=== PATIENT | male | born 1950 | race Caucasian/White ===

== ENCOUNTER 2018-03-22 10:16 | Inpatient (IN) ==
--- NOTE | 2018-03-22 10:43 | Anesthesia Evaluation PreOp ---
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: Other (anxiety, depression) Other Medical History: Renal (CKD), GERD, Other (20 cups of coffee / day) Anesthesia History: No Prior Anesthetic Complications, Past Anesthesia (previous easy airway appy, colonscopy) Alcohol Use: occasionally Drug use: marijuana Medications and Allergies Albuterol Neb [Proventil Neb] 2.5 mg IH TID 01/30/18 [History] Albuterol Sulfate [Proair Hfa] 2 puff IH Q4H PRN 01/30/18 [History] Amlodipine Besylate 5 mg PO DAILY 01/30/18 [History] BuPROPion XL (24 HR) [Wellbutrin XL] 150 mg PO DAILY 01/30/18 [History] Cholecalciferol (Vitamin D3) [Vitamin D3] 5,000 unit PO DAILY 01/30/18 [History] HYDROcodone/Acet 7.5/325 mg [[place] 7.5-325 mg] 1 tab PO Q12H PRN 01/30/18 [History] Meloxicam 15 mg PO DAILY 01/30/18 [History] Omeprazole 20 mg PO DAILY 01/30/18 [History] Tiotropium [Spiriva] 18 mcg IH DAILY 01/30/18 [History] Allergy/AdvReac Type Severity Reaction Status Date / Time No Known Allergies Allergy Verified 03/05/18 14:11 - Meds/Allergy Pre-op Review Medications Reviewed: Yes Allergies Reviewed: Yes Beta Blockers on Current Med List: No Anesthesia Results - Labs Laboratory Tests 02/22/18 03/05/18 03/19/18 08:12 15:57 10:39 WBC Hgb Hct Plt Count ABG pH 7.42 ABG pCO2 42 ABG pO2 68 L ABG HCO3 27 ABG Total CO2 28 H Sodium 139 Potassium 3.8 Chloride 105 Carbon Dioxide 29 BUN 19 POC Creatinine 1.30 Est GFR (Non-Af Amer) 58 L 03/19/18 10:39 WBC 8.8 Hgb 15.0 Hct 46.8 Plt Count 221 ABG pH ABG pCO2 ABG pO2 ABG HCO3 ABG Total CO2 Sodium Potassium Chloride Carbon Dioxide BUN POC Creatinine Est GFR (Non-Af Amer) - Imaging EKG: report reviewed Additional studies: 02/2018 INTERPRETATION: Quality: Acceptable for interpretation Spirometry shows moderate airway obstructive pattern No response to inhaled bronchodilators is seen Lung Volumes are normal. DLCO: Severe impairment in gas exchange Flow Volume Loop: Obstructive 01/14/[address] IMPRESSION: There has been interval development of a 4.0 x 5.0 x 4.0 cm spiculated masslike consolidation in the right perihilar region centered mainly in the middle lobe with encroachment into the adjacent lobes and also blending into the anterior hilum along with interval mild increase in mediastinal adenopathy. Findings would be considered neoplastic until proven otherwise. Subpleural nodular density in the left upper lobe reported on previous exam has almost completely resolved. Anesthesia Exam Vital Signs/O2 Sat/Glucose, Most Recent Temp Pulse Resp BP Pulse Ox 97.9 F 76 18 128/80 94 03/22/18 11:30 03/22/18 11:30 03/22/18 11:30 03/22/18 11:30 03/22/18 11:30 Weight: 93 kg NPO (# of Hours): > 8 hr - HEENT Pupil (Motor): Pupils equal, EOMI Mallampati: III Teeth: Edentulous, Poor dentition (1 cracked tooth) Oral Opening: Greater than 3 - ASSEMBLER INSTALLER GENERAL LOC: Oriented ASSEMBLER INSTALLER GENERAL Motor: Normal RUE, Normal LUE, Normal RLE, Normal LLE, Normal Face ASSEMBLER INSTALLER GENERAL Sensory: Normal: RUE, LUE, RLE, LLE, Face - Cardiac Rhythm: Regular Murmur: None - Pulmonary Breath Sounds: bilateral Clear Respiratory Effort: Symmetrical Anesthesia Assess/Plan ASA Score: 3 (HTN, COPD, lung caner, high risk TYRONE) Level of consciousness: Cooperative, Oriented Anesthetic Plan: General Monitoring Plan: Standard Monitors Recovery Plan: PACU
[2018-03-22] MEDS ORDERED: Dexamethasone 4 MG/ML VIAL ONE (10:50)
[2018-03-22] MEDS ORDERED: *HR* Rocuronium Bromide 50 MG/5 ML VIAL ONE (10:50)
[2018-03-22] MEDS ORDERED: Ondansetron 4 MG/2 ML VIAL ONE (10:50)
[2018-03-22] MEDS ORDERED: Lidocaine -MPF 2% 2 ML VIAL ONE (10:50)
[2018-03-22] MEDS ORDERED: *HR* Midazolam HCl 2 MG/2 ML VIAL ONE (10:51)
[2018-03-22] MEDS ORDERED: *HR* Propofol 200 MG/20 ML VIAL IVP ONE (10:51)
[2018-03-22] MEDS ORDERED: *HR* FentaNYL (PF) 100 MCG/2 ML VIAL ONE ×2 (10:51→14:34)
[2018-03-22] MEDS ORDERED: Ketorolac 30 MG/ML VIAL ONE (10:54)
[2018-03-22] MEDS ORDERED: Albuterol 2.5 MG/3 ML NEBULIZER IH ONE (11:27)
[2018-03-22] MEDS ORDERED: CeFAZolin Syr 2,000MG/20 ML 2,000 MG/20 ML SYRINGE IVPB ONE (11:27)
[2018-03-22] MEDS ORDERED: Ringers Solution, Lactated 1,000 ML IVC SCH (11:30)
[2018-03-22] MEDS ORDERED: Ketorolac 30 MG/ML VIAL IVP ONE (11:45)
[2018-03-22] MEDS ORDERED: Famotidine 20 MG/2 ML VIAL IVP ONE (11:45)
[2018-03-22] MEDS ORDERED: *HR* OxyCODONE Immed Rel 5 MG TABLET PO PRN (11:45)
[2018-03-22] MEDS ORDERED: Acetaminophen IV 1,000 MG/100 ML INFUS..BTL IVPB ONE (11:45)
[2018-03-22] MEDS ORDERED: Gabapentin 300 MG CAPSULE PO ONE (11:45)
[2018-03-22] MEDS ORDERED: *HR* Promethazine 25 MG/ML VIAL IVP PRN (11:45)
[2018-03-22] MEDS ORDERED: Ondansetron 4 MG/2 ML VIAL IVP ONE (11:45)
[2018-03-22] MEDS ORDERED: *HR* HYDROmorphone (PF) 1 MG/ML SYRINGE IVP PRN (11:45)
[2018-03-22] MEDS ORDERED: KETAMINE HCL 50 MG/ML SYRINGE IV ONE (12:08)
[2018-03-22] MEDS ORDERED: SUGAMMADEX SODIUM 500 MG/5 ML VIAL IV ONE (12:09)
--- NOTE | 2018-03-22 12:13 | History & Physical Report ---
Date of Encounter: 03/22/18 Time of Encounter: 12:13 24 Hour HP Update - Instructions Instructions: If the History and Physical is less than 30 days old and was completed prior to A.M. admission and or procedure and has NOT been updated on calendar day of procedure please complete this update prior to performing procedure. - Update Patient reports changes in Medical Condition: No Changes in examination, assessment, or condition: No Changes in Medication: No Preop tests/diagnostics Reviewed: Yes Pre-Op MRSA Screen: Negative Surgery Remains Indicated: Yes Consent for Planned Operative Procedure(s) Verified: Yes - Pre-Operative Checklist Preoperative Checklist Indicated: Yes Prophylactic Antibiotic Ordered: Yes Home Medications Include Beta Rick: No Beta Rick Taken Today (Day of Surgery): No Beta Rick Taken Yesterday (Day Prior to Surgery): No Is VTE Prophylaxis Indicated?: Yes
[2018-03-22] MEDS ORDERED: Heparin 1,000 UNITS/500 mL 1,000 ML ONE (12:44)
[2018-03-22] MEDS ORDERED: Lidocaine/EPI 1:100k 1% 20 ML VIAL ONE (12:44)
[2018-03-22] MEDS ORDERED: *HR* PHENYLEPHRINE 1,000 MCG/10 ML SYRINGE IVP ONE (13:29)
[2018-03-22] MEDS ORDERED: Naloxone 0.4 MG/ML INJ ONE (15:31)
--- NOTE | 2018-03-22 15:32 | Operative Note ---
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 Post-op diagnosis: same Procedure: bronchoscopy with aspiration, exploratory right thoracotomy, power port insertion with fluoroscopy right subclavian Complications: none Anesthesia: GETA Local Anesthetics: 0.5% Sensorcaine HCL SubQ (cc) (paravertebral) Surgeon: Tapan Prabhakar Was there an music library assistant present: No Estimated blood loss (cc): 50 Specimen: none Condition: stable Disposition: PACU Procedure in Detail: Patient was brought to the operating room on the operating room table in the supine after undergoing general anesthesia bronchoscopy was used to confirm initial placement of endotracheal tube in the esophagus and subsequently successful placement in the tracheobronchial tree. Thick copious secretions were aspirated from the tracheobronchial tree until clear. A couple of times the bronchoscope had been flushed because of the thick secretions clogging the bronchoscope. The tumor was blocking 100% of the right middle lobe bronchus as well as obstruction of the superior segment of the right lower lobe bronchus. It was extending into the right basilar segments. The patient was placed on the operating room table in the left lateral decubitus position with care to pad all pressure points prepped and draped in the usual sterile fashion. Muscle-sparing thoracotomy incision was made on the lateral border of the latissimus dorsi muscle the skin down to the subcutaneous tissues with the Bovie used to control hemostasis. The latissimus muscle was retracted posteriorly ausculatory triangle incised, and the serratus anterior muscle retracted anteriorly. First the fifth interspace but then subsequently the fourth interspace was entered. Adhesions were taken down within the chest cavity and middle lobe dissected off pericardium. Tumor was involving the phrenic nerve and it was stuck on the posterior portion of the right middle lobe vein. An intracardiac pneumonectomy would leave the patient who is slightly overweight and bronchodilator-dependent with less than 1000 mL of FEV1. Paravertebral nerve blocks were performed. A 28-Greek chest tube placed through a separate skin incision and secured in place with a 2-0 Ethibond suture. The intercostal spaces were closed with #1 Vicryl, the ausculatory triangle closed with #1 Vicryl, flat Giovanny-Aguirre drain placed through a separate skin incision and placed between the latissimus dorsi and serratus anterior muscles. It was secured into place with a 2-0 silk suture. The latissimus was tacked to the deep dermis with a 0 Vicryl. The superficial dermis closed with 0 Vicryl and the skin closed with a 4-0 Monocryl subcuticular stitch with dressings consisting of Steri-Strips and sterile gauze. Patient was placed back on the operating room table in the supine position. Shaved of body hair prepped and draped in the usual sterile fashion. Seldinger technique was used to access the right subclavian vein. A PowerPort pocket created with a scalpel blade and Bovie cautery. Under fluoroscopy with me guiding interpretation and placement, the catheter was placed into the right atrium. The catheter was sized and connected to the reservoir port which was tacked to the pectoralis fashion with Ethibond suture. The port was flushed with heparinized saline. 0 Vicryl and 4-0 Monocryl subcuticular stitches were used to close the incision. Sterile dressings were applied. Patient was extubated and taken to the recovery room.
[2018-03-22] MEDS ORDERED: Ipratropium/Albuterol Neb 3 ML ONE (15:40)
--- NOTE | 2018-03-22 17:27 | Anesthesia Evaluation Post Op ---
Date of Encounter: 03/22/18 Time of Encounter: 17:26 - Vital Signs Vital Signs: Vital Signs/O2 Sat, Most Current Temp Pulse Resp BP Pulse Ox 99.5 F 60 15 110/51 91 03/22/18 17:15 03/22/18 17:15 03/22/18 17:15 03/22/18 17:15 03/22/18 17:15 - Lungs Lungs: Clear Ascult./Percussion - Airway Airway: Non-obstructed - Cardiovascular Regular Rate - Mental Status Mental Status: Asleep with brisk response to light stimulation - Pain Pain Scale used: Craft-Rodriguez (Faces) (appears in no distress) - Nausea Vomiting Nausea Vomiting: Not Present - Hydration Hydration: NPO - Discharge PostOp Status: Transfer Patient to floor
[2018-03-22] MEDS: 0.9 % Sodium Chloride 1,000 ML IVC SCH (19:01)
[2018-03-22 19:10] LABS: ABG Base Excess 0 mEq/L (-2 to 3); ABG HCO3 27 mEq/L (21-27); ABG Oxygen Saturation 89 % (95-98); ABG PCO2 51 mmHg (35-45); ABG PH 7.32 pH Units (7.32-7.45); ABG PO2 62 mmHg (85-104); ABG TCO2 28 mEq/L (20-26)
[2018-03-22] MEDS: Albuterol 2.5 MG/3 ML NEBULIZER IH SCH (20:36)
[2018-03-22] MEDS: Gabapentin 300 MG CAPSULE PO SCH (21:43)
[2018-03-23] MEDS: Albuterol 2.5 MG/3 ML NEBULIZER IH SCH ×3 (02:54→16:12)
[2018-03-23] MEDS: *HR* HYDROmorphone 20 MG/20 ML PCA IVC SCH (03:11)
--- NOTE | 2018-03-23 05:05 | Cardiothoracic Progress Note ---
Date of Encounter: 03/23/18 Time of Encounter: 05:04 - Assessment and plan (1) Lung cancer Current Visit: No Status: Acute The assessment and plan as outlined above was discussed with the patient and/or family members who expressed understanding and agreement. All questions were answered. We will leave the chest tubes in until Sunday. Qualifiers: - Subjective Interval history: The patient has moderate postoperative pain, which is being well controlled by a POWER HAMMER OPERATOR pump. Vital Signs, Last 4 Hours Temp Pulse Resp BP Pulse Ox 03/23/18 04:13 97.6 F 73 16 110/68 94 Oxgyen Flow Rate Oxygen Flow Rate (LPM) 10 Clinical Data, last 8 Hours Output, Chest Tube Drainage 50 Amount [Right Lateral Chest #1 ] Output, Chest Tube Drainage 40 Amount [Right Lateral Chest #1 ] Output, Urine Amount 300 Output, Urine Amount 350 Weight 03/21/18 03/22/18 03/23/18 23:59 23:59 23:59 Weight 93.44 kg 93.7 kg Lungs are clear to percussion and auscultation. Chest tube drainage is minimal. Heart is in a regular rate and rhythm. - VTE Documentation of Mechanical Device: Intermittent pneumatic compression device Consult Discharge Plan - Plan Referrals: Tapan Prabhakar MD [Partnered Physician] - 04/22/18 11:00 am Anika Kim MD [Primary Care Provider] - 03/29/18 7:30 am
[2018-03-23 05:50] LABS: Basophils % 0.1 %; Hemoglobin 13.5 g/dL (12.9-16.9); Immature Granulocytes % 0.3 % (0-4); Lymphocytes # 0.6 K/mcL (0.6-4.6); Mean Corpuscular HGB Conc 32.1 g/dL (31.6-35.5); Mean Corpuscular Hemoglobin 30.1 pg (28.0-33.3); Mean Corpuscular Volume 93.8 fL (83.0-100.0); Mean Platelet Volume 10.8 fL (9.4-12.4); Monocytes # 0.5 K/mcL (0.0-1.3); Monocytes % 4.2 %; Neutrophils # 10.9 K/mcL (1.6-8.9); Platelet Count 194 K/mcL (140-400); Red Blood Count 4.48 M/mcL (4.19-5.50); Red Cell Distribution Width 15.3 % (11.5-14.5); Segmented Neutrophils % 90.4 %
[2018-03-23 06:03] LABS: BUN/Creatinine Ratio 17 (6-26); Blood Urea Nitrogen 21 mg/dL (8-23); Calcium 8.7 mg/dL (8.6-10.3); Carbon Dioxide 26 mEq/L (23-29); Chloride 104 mEq/L (98-107); Glucose 136 mg/dL (70-105); Osmolality,Calculated 287 (280-300); Potassium 5.1 mEq/L (3.5-5.1); Sodium 136 mEq/L (136-145); eGFR For Non-African Americans 57 (> 60)
[2018-03-23] MEDS: BuPROPion XL (24 HR) 150 MG TABLET PO SCH (07:57)
[2018-03-23] MEDS: Gabapentin 300 MG CAPSULE PO SCH ×3 (07:58→20:07)
[2018-03-23] MEDS: 0.9 % Sodium Chloride 1,000 ML IVC SCH (07:58)
[2018-03-23] MEDS: amLODIPine 5 MG TABLET PO SCH (07:58)
[2018-03-23] MEDS: Tiotropium 18 MCG inhalation IH SCH (11:21)
[2018-03-23] MEDS: Nicotine 21 MG PATCH.TD24 TD SCH (13:55)
[2018-03-24] MEDS: Albuterol 2.5 MG/3 ML NEBULIZER IH SCH ×3 (00:31→15:33)
[2018-03-24] MEDS: 0.9 % Sodium Chloride 1,000 ML IVC SCH ×2 (07:43→13:46)
[2018-03-24] MEDS: *HR* HYDROmorphone 20 MG/20 ML PCA IVC SCH (07:43)
[2018-03-24] MEDS: BuPROPion XL (24 HR) 150 MG TABLET PO SCH (07:45)
[2018-03-24] MEDS: Gabapentin 300 MG CAPSULE PO SCH ×3 (07:45→20:03)
[2018-03-24] MEDS: amLODIPine 5 MG TABLET PO SCH (07:45)
[2018-03-24] MEDS: Nicotine 21 MG PATCH.TD24 TD SCH (07:45)
--- NOTE | 2018-03-24 09:54 | Cardiothoracic Progress Note ---
Date of Encounter: 03/24/18 Time of Encounter: 09:52 - Assessment and plan (1) Lung cancer Current Visit: No Status: Acute We will leave the chest tubes in until tomorrow. Qualifiers: - Subjective Interval history: The patient complains of mild postoperative pain. Vital Signs, Last 4 Hours Temp Pulse Resp BP Pulse Ox 03/24/18 07:27 98.0 F 74 18 161/90 88 Oxgyen Flow Rate Oxygen Flow Rate (LPM) 5 Clinical Data, last 8 Hours Output, Chest Tube Drainage 50 Amount [Right Lateral Chest #1 ] Weight 03/22/18 03/23/18 03/24/18 23:59 23:59 23:59 Weight 93.44 kg 93.7 kg 100.6 kg Lungs are clear to percussion and auscultation. Heart is in a regular rate and rhythm. Chest tube drainage is minimal. - Labs 03/23/18 05:31 03/23/18 05:31 - VTE Documentation of Mechanical Device: Intermittent pneumatic compression device Consult Discharge Plan - Plan Referrals: Tapan Prabhakar MD [Partnered Physician] - 04/22/18 11:00 am Anika Kim MD [Primary Care Provider] - 03/29/18 7:30 am
[2018-03-24] MEDS: Tiotropium 18 MCG inhalation IH SCH (10:12)
[2018-03-24] MEDS ORDERED: Furosemide 20 MG/2 ML VIAL IVP ONE (13:49)
[2018-03-24] MEDS ORDERED: 0.9 % Sodium Chloride 1,000 ML IVC SCH (14:00)
[2018-03-25] MEDS: Albuterol 2.5 MG/3 ML NEBULIZER IH SCH ×3 (03:21→15:42)
[2018-03-25] MEDS: BuPROPion XL (24 HR) 150 MG TABLET PO SCH (08:34)
[2018-03-25] MEDS: amLODIPine 5 MG TABLET PO SCH (08:35)
[2018-03-25] MEDS: Nicotine 21 MG PATCH.TD24 TD SCH (08:35)
[2018-03-25] MEDS: Gabapentin 300 MG CAPSULE PO SCH ×3 (08:35→20:13)
[2018-03-25] MEDS: Tiotropium 18 MCG inhalation IH SCH (10:55)
--- NOTE | 2018-03-25 14:13 | Cardiothoracic Progress Note ---
Date of Encounter: 03/25/18 Time of Encounter: 14:11 - Assessment and plan (1) Malignant neoplasm of overlapping sites of right lung Current Visit: Yes Status: Acute The assessment and plan as outlined above was discussed with the patient and/or family members who expressed understanding and agreement. All questions were answered. removed guillermo and chest tube. remove yun in am 2/5. change analgesics to po. xray in am - Subjective Procedure(s) Performed: none Vital Signs, Last 4 Hours Temp Pulse Resp BP Pulse Ox 03/25/18 11:06 97.9 F 76 14 150/88 96 03/25/18 10:57 20 90 Oxgyen Flow Rate Oxygen Flow Rate (LPM) 6 Clinical Data, last 8 Hours Output, Chest Tube Drainage 10 Amount [Right Lateral Chest #1 ] Output, Chest Tube Drainage 0 Amount [Right Lateral Chest #1 ] Weight 03/23/18 03/24/18 03/25/18 23:59 23:59 23:59 Weight 93.7 kg 100.6 kg 101.7 kg - Physical Examination General: Conversant, No Apparent Distress HEENT: Atraumatic, Normocephaly Cardiac: Reg Rate and Rhythm, Normal S1 and S2, No Murmur Incision: No signs of infection, Dry/intact dressing, Open to air Chest tubes: Minimal drainage Lungs: Normal Breath Sounds Neuro: Alert and responsive, No focal deficits noted, Cranial nerves intact - Labs 03/23/18 05:31 03/23/18 05:31 - VTE Documentation of Mechanical Device: Intermittent pneumatic compression device Consult Discharge Plan - Plan Referrals: Tapan Prabhakar MD [Partnered Physician] - 04/22/18 11:00 am Anika Kim MD [Primary Care Provider] - 03/29/18 7:30 am
[2018-03-25] MEDS ORDERED: MOM Conc 10 ML UD.LIQ PO PRN (14:22)
[2018-03-25] MEDS: *HR* HYDROcodone/Acet 5/325 mg TABLET PO PRN ×2 (16:03→22:05)
[2018-03-26] MEDS: Albuterol 2.5 MG/3 ML NEBULIZER IH SCH ×3 (02:45→16:45)
[2018-03-26] MEDS: *HR* HYDROcodone/Acet 5/325 mg TABLET PO PRN ×4 (04:30→23:20)
[2018-03-26] MEDS: Nicotine 21 MG PATCH.TD24 TD SCH (08:09)
[2018-03-26] MEDS: amLODIPine 5 MG TABLET PO SCH (08:10)
[2018-03-26] MEDS: Gabapentin 300 MG CAPSULE PO SCH ×3 (08:10→21:11)
[2018-03-26] MEDS: BuPROPion XL (24 HR) 150 MG TABLET PO SCH (08:10)
[2018-03-26] MEDS: Tiotropium 18 MCG inhalation IH SCH (10:25)
--- NOTE | 2018-03-26 14:20 | Cardiothoracic Progress Note ---
Date of Encounter: 03/26/18 Time of Encounter: 14:18 - Assessment and plan (1) Malignant neoplasm of overlapping sites of right lung Current Visit: Yes Status: Acute The assessment and plan as outlined above was discussed with the patient and/or family members who expressed understanding and agreement. All questions were answered. weaning oxygen down to 1.5L from 6L with sats stable at 90 to 91. nurse encouraging patient. encourage to ambulate. - Subjective Interval history: none Vital Signs, Last 4 Hours Temp Pulse Resp BP Pulse Ox 03/26/18 11:45 98.5 F 95 18 135/77 91 03/26/18 10:25 18 92 Oxgyen Flow Rate Oxygen Flow Rate (LPM) 4 Clinical Data, last 8 Hours Output, Urine Amount 200 Weight 03/24/18 03/25/18 03/26/18 23:59 23:59 23:59 Weight 100.6 kg 101.7 kg 99.6 kg - Physical Examination General: Conversant, No Apparent Distress HEENT: Atraumatic, Normocephaly Cardiac: Reg Rate and Rhythm, Normal S1 and S2 Lungs: Other (rhonchi that clears with cough. ) Neuro: Alert and responsive, No focal deficits noted, Cranial nerves intact - Labs 03/23/18 05:31 03/23/18 05:31 - Imaging Chest Xray: image reviewed - VTE Documentation of Mechanical Device: Intermittent pneumatic compression device Consult Discharge Plan - Plan Referrals: Tapan Prabhakar MD [Partnered Physician] - 04/22/18 11:00 am Anika Kim MD [Primary Care Provider] - 03/29/18 7:30 am
[2018-03-27] MEDS: Albuterol 2.5 MG/3 ML NEBULIZER IH SCH ×2 (02:55→10:07)
[2018-03-27] MEDS: *HR* HYDROcodone/Acet 5/325 mg TABLET PO PRN ×2 (05:31→13:16)
[2018-03-27] MEDS: Gabapentin 300 MG CAPSULE PO SCH (07:53)
[2018-03-27] MEDS: amLODIPine 5 MG TABLET PO SCH (07:53)
[2018-03-27] MEDS: BuPROPion XL (24 HR) 150 MG TABLET PO SCH (07:53)
[2018-03-27] MEDS: Nicotine 21 MG PATCH.TD24 TD SCH (07:53)
[2018-03-27] MEDS: Tiotropium 18 MCG inhalation IH SCH (10:07)
--- NOTE | 2018-03-27 10:20 | Discharge Summary ---
Orders not resulted at time of discharge: Pending orders 03/21/18 Red Blood Cells [BBK] Routine 03/22/18 XR fluoroscopy <1 hr [XR] Routine Date of Encounter: 03/27/18 Time of Encounter: 10:17 - Discharge Diagnosis (1) Malignant neoplasm of overlapping sites of right lung Priority: Primary Status: Acute Comments: home today (2) Acute and chronic postprocedural respiratory failure Priority: Secondary Status: Acute Comments: sats 86% on ra and 90% on 2 L NC. - Hospital Course Hospital course: Mr. Montes is a 67 year old male - Time Spent with Patient Total time spent providing and/or coordinating discharge services: - Discharge Medications Home Medications: Albuterol Neb [Proventil Neb] 2.5 mg IH TID PRN 01/30/18 [History] HYDROcodone/Acet 7.5/325 mg [[place] 7.5-325 mg] 1 tab PO Q12H PRN 01/30/18 [History] Meloxicam 15 mg PO DAILY 01/30/18 [History] Omeprazole 20 mg PO DAILY 01/30/18 [History] Tiotropium [Spiriva] 18 mcg IH DAILY 01/30/18 [History] Albuterol Sulfate [Ventolin Hfa] 2 puff PO Q4-6H PRN 03/24/18 [History] Amlodipine Besylate 5 mg PO DAILY 03/24/18 [History] Cholecalciferol (Vitamin D3) [Dialyvite Vitamin D] 5,000 unit PO DAILY 03/24/18 [History] Allergies/Adverse Reactions: Allergy/AdvReac Type Severity Reaction Status Date / Time No Known Allergies Allergy Verified 03/24/18 10:59 Date of admission: 03/22/18 17:43 Primary care physician: Anika Kim MD Procedure(s) Performed: bronchoscopy, exploratory right thoracotomy Physical Examination Vital Signs, Last 4 Hours Temp Pulse Resp BP Pulse Ox 03/27/18 10:08 18 92 03/27/18 07:21 98.2 F 80 18 131/78 92 General: Conversant, No Apparent Distress HEENT: Atraumatic, Normocephaly, Trachea midline Cardiac: Reg Rate and Rhythm, Normal S1 and S2, No Murmur Lungs: Normal Breath Sounds Neuro: Alert and responsive, No focal deficits noted, Cranial nerves intact, Motor nerves intact Abdomen: Soft, Non-tender - Patient Status Disposition: Home, Self-Care Condition: Good Functional capacity at discharge: independent ambulation Overall status at discharge: patient is progressing back to baseline - Discharge Instructions Follow Up With: Tapan Prabhakar MD [Partnered Physician] - 04/22/18 11:00 am Anika Kim MD [Primary Care Provider] - 03/29/18 7:30 am - Diet and Activity Activity: no driving for four weeks, no lifting greater than 10 pounds for eight weeks, increase activity as tolerated, wear oxygen at all times Diet: regular diet - VTE Documentation of Mechanical Device: Intermittent pneumatic compression device
[2018-03-27 12:00] VITALS: BP 140/71
== END 2018-03-27 15:25 | disposition home or self-care (01) | DRG 180 ==
LOC: SAMDAY 10:16 → 2NNU 17:43
PROVIDERS: ADMIT Thoracic Surgery (Cardiothoracic Vascular Surgery); ATTEND Thoracic Surgery (Cardiothoracic Vascular Surgery)

== ENCOUNTER 2019-03-06 20:14 | Inpatient (IN) ==
[2019-03-07] MEDS ORDERED: Naloxone 0.4 MG/ML INJ IVP PRN (01:19)
[2019-03-07] MEDS ORDERED: 0.9 % Sodium Chloride 1,000 ML IVC SCH (01:30)
[2019-03-07 01:35] LABS: ABG Base Excess 15 mEq/L (-2 to 3); ABG HCO3 42 mEq/L (21-27); ABG Oxygen Saturation 98 % (95-98); ABG PCO2 62 mmHg (35-45); ABG PH 7.44 pH Units (7.32-7.45); ABG PO2 109 mmHg (85-104); ABG TCO2 44 mEq/L (20-26); Blood Gas Modality NIV
[2019-03-07] MEDS ORDERED: Azithromycin 500 MG in 0.9 % Sodium Chloride 250 ML IVPB SCH (02:00)
[2019-03-07] MEDS ORDERED: Aspirin 325 MG TABLET PO ONE (02:14)
[2019-03-07] MEDS ORDERED: *HR* LORazepam 2 MG/ML VIAL IVP ONE (02:25)
[2019-03-07] MEDS ORDERED: Furosemide 20 MG/2 ML VIAL IVP ONE (02:25)
[2019-03-07 02:29] LABS: Hematocrit 35.5 % (37.5-50.1); Hemoglobin 10.7 g/dL (12.9-16.9); Mean Corpuscular HGB Conc 30.1 g/dL (31.6-35.5); Mean Corpuscular Hemoglobin 29.8 pg (28.0-33.3); Mean Corpuscular Volume 98.9 fL (83.0-100.0); Mean Platelet Volume 11.1 fL (9.4-12.4); Platelet Count 218 K/mcL (140-400); Red Blood Count 3.59 M/mcL (4.19-5.50); Red Cell Distribution Width 15.3 % (11.5-14.5); White Blood Count 9.3 K/mcL (4.3-11.1)
[2019-03-07 02:44] LABS: BUN/Creatinine Ratio 22 (6-26); Blood Urea Nitrogen 22 mg/dL (8-23); Calcium 9.4 mg/dL (8.6-10.3); Carbon Dioxide 41 mEq/L (23-29); Chloride 87 mEq/L (98-107); Glucose 157 mg/dL (70-105); Osmolality,Calculated 287 (280-300); Sodium 135 mEq/L (136-145); eGFR For African Americans > 60 (> 60); eGFR For Non-African Americans > 60 (> 60)
[2019-03-07] MEDS: Ipratropium/Albuterol Neb 3 ML IH SCH ×6 (03:48→23:10)
[2019-03-07 04:47] LABS: Bilirubin,Urine Negative (Negative); Blood,Urine Negative (Negative); Clarity,Urine Clear (Clear); Color,Urine Yellow (Yellow); Glucose,Urine (UA) Normal (Normal); Ketones,Urine Negative (Negative); Leukocyte Esterase,Urine Negative (Negative); Nitrite,Urine Negative (Negative); Protein,Urine Negative (Neg-Trace); Specific Gravity,Urine 1.011 (1.010-1.025); Urobilinogen,Urine Normal (Normal)
[2019-03-07] MEDS: Piperacillin/Tazobactam 3.375 GM in 0.9 % Sodium Chloride Mini Bag 100 ML IVPB SCH ×3 (05:29→23:18)
[2019-03-07] MEDS ORDERED: *HR* Heparin 5,000 UNIT/ML VIAL SQ SCH (06:00)
[2019-03-07] MEDS ORDERED: MethylPREDNISolone 40 MG/ML VIAL IVP SCH (06:00)
[2019-03-07] MEDS: Acetaminophen 325 MG TABLET PO PRN (06:50)
[2019-03-07] MEDS ORDERED: *HR* Heparin 5,000 UNIT/ML VIAL IVP ONE (08:38)
[2019-03-07] MEDS ORDERED: *HR* Heparin 5,000 UNIT/ML VIAL IVP PRN ×2 (08:38)
[2019-03-07 09:30] LABS: Heparin anti-factor XA UFH 0.12 IU/mL (0.30-0.70); INR 1.2; Prothrombin Time 13.7 Seconds (9.4-12.1)
[2019-03-07] MEDS: Heparin 25,000 UNIT/250 ML D5W 25,000 UNIT/250 ML IV.SOLN IVC SCH (10:14)
[2019-03-07] MEDS ORDERED: Perflutren Lipid Microsphere 1.3 ML in 0.9 % Sodium Chloride 8.7 ML IVP ONE (13:43)
[2019-03-07] MEDS: *HR* HYDROcodone/Acet 10/325 mg TABLET PO PRN (15:28)
[2019-03-07] MEDS: MethylPREDNISolone 40 MG/ML VIAL IVP SCH (18:40)
[2019-03-07] MEDS: Budesonide/Formoterol 80/4.5 1 PUFF INH IH SCH (19:47)
[2019-03-07] MEDS: Gabapentin 300 MG CAPSULE PO SCH (20:43)
[2019-03-07] MEDS ORDERED: NON-FORMULARY MEDICATION 1 EACH EACH (Fluticasone/Salmeterol [Advair Hfa 115-21 Mcg Inhale IH SCH (21:00)
[2019-03-07] MEDS ORDERED: Haloperidol Lactate 5 MG/ML VIAL IVP ONE ×2 (23:44→23:47)
[2019-03-07] MEDS ORDERED: *HR* Promethazine 25 MG/ML VIAL IVP ONE (23:47)
[2019-03-08 01:07] LABS: Hematocrit 30.9 % (37.5-50.1); Hemoglobin 9.6 g/dL (12.9-16.9); Mean Corpuscular HGB Conc 31.1 g/dL (31.6-35.5); Mean Corpuscular Hemoglobin 29.6 pg (28.0-33.3); Mean Corpuscular Volume 95.4 fL (83.0-100.0); Mean Platelet Volume 10.6 fL (9.4-12.4); Platelet Count 175 K/mcL (140-400); Red Blood Count 3.24 M/mcL (4.19-5.50); Red Cell Distribution Width 15.6 % (11.5-14.5); White Blood Count 7.3 K/mcL (4.3-11.1)
[2019-03-08 01:24] LABS: BUN/Creatinine Ratio 21 (6-26); Blood Urea Nitrogen 18 mg/dL (8-23); Calcium 8.8 mg/dL (8.6-10.3); Carbon Dioxide 38 mEq/L (23-29); Chloride 94 mEq/L (98-107); Glucose 160 mg/dL (70-105); Osmolality,Calculated 289 (280-300); Potassium 3.4 mEq/L (3.5-5.1); Sodium 137 mEq/L (136-145); eGFR For African Americans > 60 (> 60); eGFR For Non-African Americans > 60 (> 60)
[2019-03-08] MEDS: Ipratropium/Albuterol Neb 3 ML IH SCH ×6 (04:07→23:04)
[2019-03-08 04:19] LABS: Adenovirus Not Detected (Not Detect); Bordetella Pertussis Not Detected (Not Detect); Chlamydophila pneumoniae Not Detected (Not Detect); Coronavirus 229E Not Detected (Not Detect); Coronavirus HKU1 Not Detected (Not Detect); Coronavirus NL63 Not Detected (Not Detect); Coronavirus OC43 Not Detected (Not Detect); Human Metapneumovirus Not Detected (Not Detect); Human Rhinovirus/Enterovirus Not Detected (Not Detect); Influenza A Subtype 2009 H1 Not Detected (Not Detect); Influenza B Not Detected (Not Detect); Mycoplasma pneumoniae Not Detected (Not Detect); Parainfluenza Virus 1 Not Detected (Not Detect); Parainfluenza Virus 2 Not Detected (Not Detect); Parainfluenza Virus 3 Not Detected (Not Detect); Parainfluenza Virus 4 Not Detected (Not Detect); Respiratory Syncytial Virus Not Detected (Not Detect)
[2019-03-08] MEDS: MethylPREDNISolone 40 MG/ML VIAL IVP SCH ×2 (06:05→18:19)
[2019-03-08] MEDS: Piperacillin/Tazobactam 3.375 GM in 0.9 % Sodium Chloride Mini Bag 100 ML IVPB SCH ×3 (06:05→23:36)
[2019-03-08] MEDS: Budesonide/Formoterol 80/4.5 1 PUFF INH IH SCH ×2 (07:32→20:08)
[2019-03-08] MEDS ORDERED: Aminoglycoside Consult 1 EACH MC ONE (08:31)
[2019-03-08] MEDS: Heparin 25,000 UNIT/250 ML D5W 25,000 UNIT/250 ML IV.SOLN IVC SCH (09:00)
[2019-03-08] MEDS: Furosemide 40 MG TABLET PO SCH (10:00)
[2019-03-08] MEDS: Gabapentin 300 MG CAPSULE PO SCH ×3 (10:00→20:35)
[2019-03-08] MEDS: amLODIPine 5 MG TABLET PO SCH (10:00)
[2019-03-08] MEDS: Aspirin 81 MG TAB.CHEW PO SCH (10:01)
[2019-03-08] MEDS: *HR* HYDROcodone/Acet 10/325 mg TABLET PO PRN (10:01)
[2019-03-08] MEDS: Cholecalciferol (D-3) 1,000 UNIT (25MCG) TABLET PO SCH (10:01)
[2019-03-09] MEDS: Heparin 25,000 UNIT/250 ML D5W 25,000 UNIT/250 ML IV.SOLN IVC SCH (01:58)
[2019-03-09 03:36] LABS: Hematocrit 30.6 % (37.5-50.1); Hemoglobin 9.3 g/dL (12.9-16.9); Mean Corpuscular HGB Conc 30.4 g/dL (31.6-35.5); Mean Corpuscular Hemoglobin 30.1 pg (28.0-33.3); Platelet Count 169 K/mcL (140-400); Red Blood Count 3.09 M/mcL (4.19-5.50); Red Cell Distribution Width 15.6 % (11.5-14.5); White Blood Count 7.2 K/mcL (4.3-11.1)
[2019-03-09 03:58] LABS: BUN/Creatinine Ratio 16 (6-26); Blood Urea Nitrogen 16 mg/dL (8-23); Calcium 8.7 mg/dL (8.6-10.3); Carbon Dioxide 36 mEq/L (23-29); Chloride 96 mEq/L (98-107); Glucose 168 mg/dL (70-105); Osmolality,Calculated 291 (280-300); Potassium 3.4 mEq/L (3.5-5.1); Sodium 138 mEq/L (136-145); eGFR For African Americans > 60 (> 60); eGFR For Non-African Americans > 60 (> 60)
[2019-03-09] MEDS: Ipratropium/Albuterol Neb 3 ML IH SCH ×6 (04:03→23:42)
[2019-03-09] MEDS: MethylPREDNISolone 40 MG/ML VIAL IVP SCH ×2 (06:11→17:25)
[2019-03-09] MEDS: Piperacillin/Tazobactam 3.375 GM in 0.9 % Sodium Chloride Mini Bag 100 ML IVPB SCH ×3 (06:11→22:39)
[2019-03-09] MEDS: Budesonide/Formoterol 80/4.5 1 PUFF INH IH SCH ×2 (07:22→20:04)
[2019-03-09] MEDS: Furosemide 40 MG TABLET PO SCH (08:57)
[2019-03-09] MEDS: amLODIPine 5 MG TABLET PO SCH (08:57)
[2019-03-09] MEDS: Cholecalciferol (D-3) 1,000 UNIT (25MCG) TABLET PO SCH (08:57)
[2019-03-09] MEDS: Gabapentin 300 MG CAPSULE PO SCH ×3 (08:57→22:39)
[2019-03-09] MEDS: Aspirin 81 MG TAB.CHEW PO SCH (08:57)
[2019-03-09] MEDS: *HR* HYDROcodone/Acet 10/325 mg TABLET PO PRN ×3 (09:02→22:38)
[2019-03-09] MEDS: *HR* Heparin 5,000 UNIT/ML VIAL SQ SCH (17:25)
[2019-03-10] MEDS: Ipratropium/Albuterol Neb 3 ML IH SCH ×5 (04:21→20:00)
[2019-03-10 04:55] LABS: Hematocrit 31.7 % (37.5-50.1); Hemoglobin 9.6 g/dL (12.9-16.9); Mean Corpuscular HGB Conc 30.3 g/dL (31.6-35.5); Mean Corpuscular Hemoglobin 30.4 pg (28.0-33.3); Mean Corpuscular Volume 100.3 fL (83.0-100.0); Mean Platelet Volume 10.8 fL (9.4-12.4); Platelet Count 164 K/mcL (140-400); Red Blood Count 3.16 M/mcL (4.19-5.50); Red Cell Distribution Width 15.4 % (11.5-14.5); White Blood Count 7.8 K/mcL (4.3-11.1)
[2019-03-10 05:19] LABS: BUN/Creatinine Ratio 24 (6-26); Blood Urea Nitrogen 21 mg/dL (8-23); Calcium 8.9 mg/dL (8.6-10.3); Carbon Dioxide 37 mEq/L (23-29); Chloride 98 mEq/L (98-107); Glucose 140 mg/dL (70-105); Osmolality,Calculated 295 (280-300); Potassium 3.5 mEq/L (3.5-5.1); Sodium 140 mEq/L (136-145); eGFR For African Americans > 60 (> 60); eGFR For Non-African Americans > 60 (> 60)
[2019-03-10] MEDS: *HR* Heparin 5,000 UNIT/ML VIAL SQ SCH ×2 (06:08→18:51)
[2019-03-10] MEDS: MethylPREDNISolone 40 MG/ML VIAL IVP SCH ×2 (06:08→18:52)
[2019-03-10] MEDS: Piperacillin/Tazobactam 3.375 GM in 0.9 % Sodium Chloride Mini Bag 100 ML IVPB SCH ×3 (06:09→22:11)
[2019-03-10] MEDS: Budesonide/Formoterol 80/4.5 1 PUFF INH IH SCH ×2 (07:45→20:00)
[2019-03-10] MEDS: amLODIPine 5 MG TABLET PO SCH (10:29)
[2019-03-10] MEDS: Aspirin 81 MG TAB.CHEW PO SCH (10:30)
[2019-03-10] MEDS: Gabapentin 300 MG CAPSULE PO SCH ×3 (10:30→22:11)
[2019-03-10] MEDS: *HR* HYDROcodone/Acet 10/325 mg TABLET PO PRN ×3 (10:30→22:10)
[2019-03-10] MEDS: Furosemide 40 MG TABLET PO SCH (10:30)
[2019-03-10] MEDS: Cholecalciferol (D-3) 1,000 UNIT (25MCG) TABLET PO SCH (10:30)
[2019-03-10] MEDS: Nicotine 21 MG PATCH.TD24 TD SCH (15:29)
[2019-03-11] MEDS: Ipratropium/Albuterol Neb 3 ML IH SCH ×4 (00:08→10:52)
[2019-03-11 03:40] LABS: Basophils % 0.1 %; Hematocrit 33.2 % (37.5-50.1); Hemoglobin 10.3 g/dL (12.9-16.9); Immature Granulocytes % 3.6 % (0-4); Lymphocytes # 0.3 K/mcL (0.6-4.6); Lymphocytes % 2.8 %; Mean Corpuscular Hemoglobin 30.2 pg (28.0-33.3); Mean Corpuscular Volume 97.4 fL (83.0-100.0); Mean Platelet Volume 11.2 fL (9.4-12.4); Monocytes # 0.4 K/mcL (0.0-1.3); Monocytes % 4.3 %; Nucleated Red Blood Cells 0.2 /100 WBC (0); Platelet Count 181 K/mcL (140-400); Red Blood Count 3.41 M/mcL (4.19-5.50); Red Cell Distribution Width 15.5 % (11.5-14.5); Segmented Neutrophils % 89.2 %
[2019-03-11 04:00] LABS: BUN/Creatinine Ratio 23 (6-26); Blood Urea Nitrogen 22 mg/dL (8-23); Carbon Dioxide 37 mEq/L (23-29); Chloride 96 mEq/L (98-107); Glucose 155 mg/dL (70-105); Osmolality,Calculated 292 (280-300); Potassium 3.7 mEq/L (3.5-5.1); Sodium 138 mEq/L (136-145); eGFR For African Americans > 60 (> 60); eGFR For Non-African Americans > 60 (> 60)
[2019-03-11] MEDS: *HR* HYDROcodone/Acet 10/325 mg TABLET PO PRN ×4 (05:08→22:09)
[2019-03-11] MEDS: *HR* Heparin 5,000 UNIT/ML VIAL SQ SCH ×2 (05:08→17:43)
[2019-03-11] MEDS: Piperacillin/Tazobactam 3.375 GM in 0.9 % Sodium Chloride Mini Bag 100 ML IVPB SCH ×3 (05:09→22:09)
[2019-03-11] MEDS: Budesonide/Formoterol 80/4.5 1 PUFF INH IH SCH ×2 (07:44→22:13)
[2019-03-11] MEDS: Gabapentin 300 MG CAPSULE PO SCH ×3 (08:05→22:08)
[2019-03-11] MEDS: Furosemide 40 MG TABLET PO SCH (08:05)
[2019-03-11] MEDS: Cholecalciferol (D-3) 1,000 UNIT (25MCG) TABLET PO SCH (08:05)
[2019-03-11] MEDS: amLODIPine 5 MG TABLET PO SCH (08:05)
[2019-03-11] MEDS: Aspirin 81 MG TAB.CHEW PO SCH (08:05)
[2019-03-11] MEDS: Nicotine 21 MG PATCH.TD24 TD SCH (08:06)
[2019-03-11] MEDS ORDERED: predniSONE 20 MG TABLET PO SCH (09:00)
[2019-03-11] MEDS: Acetaminophen 325 MG TABLET PO PRN (13:39)
[2019-03-11] MEDS: Ipratropium/Albuterol Neb 3 ML IH PRN (22:16)
[2019-03-12 03:24] LABS: Basophils % 0.2 %; Eosinophils % 0.1 %; Hematocrit 35.5 % (37.5-50.1); Hemoglobin 11.2 g/dL (12.9-16.9); Immature Granulocytes % 3.3 % (0-4); Lymphocytes # 0.6 K/mcL (0.6-4.6); Lymphocytes % 5.2 %; Mean Corpuscular HGB Conc 31.5 g/dL (31.6-35.5); Mean Corpuscular Hemoglobin 30.1 pg (28.0-33.3); Mean Corpuscular Volume 95.4 fL (83.0-100.0); Mean Platelet Volume 11.2 fL (9.4-12.4); Monocytes # 0.8 K/mcL (0.0-1.3); Monocytes % 6.7 %; Neutrophils # 9.4 K/mcL (1.6-8.9); Platelet Count 196 K/mcL (140-400); Red Blood Count 3.72 M/mcL (4.19-5.50); Red Cell Distribution Width 15.9 % (11.5-14.5); Segmented Neutrophils % 84.5 %; White Blood Count 11.2 K/mcL (4.3-11.1)
[2019-03-12 03:37] LABS: BUN/Creatinine Ratio 28 (6-26); Blood Urea Nitrogen 30 mg/dL (8-23); Carbon Dioxide 36 mEq/L (23-29); Chloride 95 mEq/L (98-107); Glucose 135 mg/dL (70-105); Osmolality,Calculated 298 (280-300); Potassium 3.2 mEq/L (3.5-5.1); Sodium 140 mEq/L (136-145); eGFR For African Americans > 60 (> 60); eGFR For Non-African Americans > 60 (> 60)
[2019-03-12] MEDS: *HR* Heparin 5,000 UNIT/ML VIAL SQ SCH ×2 (05:29→16:51)
[2019-03-12] MEDS: *HR* HYDROcodone/Acet 10/325 mg TABLET PO PRN ×3 (05:31→19:45)
[2019-03-12] MEDS: Budesonide/Formoterol 80/4.5 1 PUFF INH IH SCH ×2 (08:09→20:13)
[2019-03-12] MEDS: Gabapentin 300 MG CAPSULE PO SCH ×3 (08:51→21:18)
[2019-03-12] MEDS: amLODIPine 5 MG TABLET PO SCH (08:51)
[2019-03-12] MEDS: Nicotine 21 MG PATCH.TD24 TD SCH (08:52)
[2019-03-12] MEDS: Cholecalciferol (D-3) 1,000 UNIT (25MCG) TABLET PO SCH (08:52)
[2019-03-12] MEDS: Furosemide 40 MG TABLET PO SCH (08:52)
[2019-03-12] MEDS: Aspirin 81 MG TAB.CHEW PO SCH (08:52)
[2019-03-12] MEDS: Ipratropium/Albuterol Neb 3 ML IH PRN (20:18)
[2019-03-13] MEDS: *HR* HYDROcodone/Acet 10/325 mg TABLET PO PRN ×3 (02:00→15:15)
[2019-03-13] MEDS: *HR* Heparin 5,000 UNIT/ML VIAL SQ SCH ×2 (05:15→17:26)
[2019-03-13] MEDS: Budesonide/Formoterol 80/4.5 1 PUFF INH IH SCH (07:30)
[2019-03-13] MEDS: Ipratropium/Albuterol Neb 3 ML IH PRN (07:31)
[2019-03-13] MEDS: Furosemide 40 MG TABLET PO SCH (09:13)
[2019-03-13] MEDS: amLODIPine 5 MG TABLET PO SCH (09:13)
[2019-03-13] MEDS: Gabapentin 300 MG CAPSULE PO SCH ×2 (09:13→15:15)
[2019-03-13] MEDS: Cholecalciferol (D-3) 1,000 UNIT (25MCG) TABLET PO SCH (09:13)
[2019-03-13] MEDS: Nicotine 21 MG PATCH.TD24 TD SCH (09:13)
[2019-03-13] MEDS: Aspirin 81 MG TAB.CHEW PO SCH (09:13)
[2019-03-13 17:27] VITALS: BP 94/68
== END 2019-03-13 18:24 | disposition other institution (70) | DRG 193 ==
LOC: 2NENU → SUATTDRO 03-07 03:58
PROVIDERS: ADMIT Student in an Organized Health Care Education/Training Program; ATTEND Internal Medicine